=== PATIENT | male | born 1985 | race Two or more races ===

== ENCOUNTER 2019-09-10 23:20 | Emergency (ER) | payer OTHER ==
[~2019-09-10] VITALS: Ht 185.4 cm; Wt 104.5 kg
[2019-09-10] MEDS ORDERED: LIDOCAINE 1%/EPI 1:100,000 20 ML VIAL. SQ ONE (23:45)
[2019-09-11] MEDS ORDERED: LIDOCAINE/EPI/TETRACAINE TOPICAL GEL 3 ML. TP ONE ×2 (00:04→01:00)
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
[2019-09-11 00:51] VITALS: BP 146/67
[2019-09-11] MEDS ORDERED: AMOX1TAB61 PO (01:19)
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
[2019-09-11] MEDS ORDERED: AMOXICILLIN/K CLAV 875/125MG TABLET. PO ONE (02:00)
[2019-09-11] MEDS ORDERED: HYDROcodone/APAP 5/325MG 1 TAB TABLET PO ONE (02:00)
== END 2019-09-11 01:36 | disposition home or self-care (01) ==
LOC: ER 23:20 → EEVIPCON 23:20 → ER 09-11 01:36
DX: S02.2XXA Fracture of nasal bones, initial encounter for closed fracture (principal); S01.01XA Laceration without foreign body of scalp, initial encounter; S41.111A Laceration without foreign body of right upper arm, initial encounter; Y93.89 Activity, other specified; Y92.89 Other specified places as the place of occurrence of the external cause; Y99.8 Other external cause status; Y08.89XA Assault by other specified means, initial encounter
CPT/HCPCS: 12005; 70450; 70486; 73000; 73030; 99285; J3490